=== PATIENT | male | born 2000 | race Two or more races ===

== ENCOUNTER 2023-09-20 12:30 | Outpatient (AMB) | payer SELFPAY ==
[2023-09-20 12:52] VITALS: BP 122/60; PULSE 71; TEMP 36.1; O2SAT 99; BMI 25.8
--- NOTE | 2023-09-20 12:52 | MHC.OFFWIV ---
Intake Vital Signs 09/20/23 12:52 Height 6 ft Weight 190 lb BMI 25.8 BP 122/60 Blood Pressure Location Lt brachial Position Sitting Pulse 71 Pulse Source Pulse Oximeter Temp 97.0 F Temp Source Temporal Artery Scan Pulse Oximetry (%) 99 Oxygen Delivery Method Room Air Intake Visit Reasons: [employer] Work PE ok per Dr. Lockett Intake Note: pt is here today for PE Patient Tobacco Use Status: Never used Tobacco Allergies No Known Allergies Allergy (Verified 09/20/23 12:54) Do you need a note to return to daycare/school/sports/work: No HPI [employer] Work PE ok per Dr. Lockett HPI Details 23-year-old male presents to the office requesting a school physical. Patient is entering [employer] school. PFSH Social History Patient Tobacco Use Status: Never used Tobacco Physical Exam Vital Signs: Last Vital Signs Temp 97.0 F 09/20/23 12:52 Pulse 71 09/20/23 12:52 BP 122/60 09/20/23 12:52 Pulse Ox 99 09/20/23 12:52 Oxygen Delivery Method Room Air 09/20/23 12:52 BMI result Body Mass Index 25.8 Const General: cooperative and healthy appearing Nutritional Appearance: well nourished Orientation/consciousness: patient oriented x3 Limitations: no limitations HEENT Head: Yes normal to inspection Eyes General: appearance normal, both eyes and all related structures Neck Neck: Yes normal visual inspection Chest Chest palpation & inspection: normal palpation of entire chest wall Resp Effort & Inspection: normal respiratory effort Neuro General: patient oriented x3 Assessment & Plan Assessment & Plan (1) Physical exam, pre-employment: Code(s): Z02.1 - Encounter for pre-employment examination Plan Forms filled out. Coding Level of Care Code Sports/Work/School Physical Diagnoses Physical exam, pre-employment Z02.1
== END 2023-09-20 13:15 | disposition home or self-care (01) ==
PROVIDERS: Visit Provider Internal Medicine
DX: Z02.1 Encounter for pre-employment examination (principal)
CPT/HCPCS: 99080